=== PATIENT | female | born 1995 | race Two or more races ===

== ENCOUNTER 2017-09-03 09:10 | Emergency (ER) | payer OTHER ==
[~2017-09-03] VITALS: Ht 165.1 cm; Wt 81.6 kg
[2017-09-03 09:15] VITALS: Ht 165.1 cm; Wt 81.6 kg
[2017-09-03 12:19] VITALS: BP 129/84
[2017-09-04 04:21] LABS: RAPID PLASMA REAGIN Non Reactive (Non Reactive)
== END 2017-09-03 12:19 | disposition home or self-care (01) ==
LOC: ED 09:10
PROVIDERS: Emergency Medicine
DX: R51 Headache (principal); I38 Endocarditis, valve unspecified
CPT/HCPCS: 87491; 87591; J0696; J3030; Q0162